=== PATIENT | male | born 1975 | race Caucasian/White ===

== ENCOUNTER 2021-09-08 18:55 | Emergency (ER) | payer SELFPAY ==
[2021-09-08 19:22] VITALS: BP 129/90; PULSE 70; RESP 18; TEMP 36.4; O2SAT 97
--- NOTE | 2021-09-08 21:01 | PC.NURSE ---
First call 2100, no answer. Will call again.
--- NOTE | 2021-09-08 21:05 | PC.NURSE ---
Pt did not answer for triage at 2050 and 2100.
== END 2021-09-08 19:22 | disposition left against medical advice (07) ==
DX: Z29.14 Encounter for prophylactic rabies immune globulin (principal)
CPT/HCPCS: 99199

== ENCOUNTER 2023-08-29 13:40 | Emergency (ER) | payer OTHER, SELFPAY ==
[2023-08-29 13:43] VITALS: BP 94/60; PULSE 112; RESP 16; TEMP 36.3; O2SAT 100
--- NOTE | 2023-08-29 14:10 | PC.NURSE ---
Pt with dressings to bilateral feet. Receiving IV antibiotics at [place]. PICC line intact, will not flush. Pt states had PICC line placed at [facility]
--- NOTE | 2023-08-29 14:44 | ED_ITS ---
HPI - General Adult General Chief complaint: Recheck/Abnormal Lab/Rx Stated complaint: PICC line not working Time Seen by Provider: 08/29/23 14:02 History of Present Illness HPI narrative: 48-year-old male present in the emergency department for evaluation of a PICC line that is nonfunctioning. Patient had his PICC line placed approximately 2 weeks ago at [place] in the line is no longer functional. Related Data Allergies Allergy/AdvReac Type Severity Reaction Status Date / Time No Known Allergies Allergy Verified 09/08/21 19:25 Review of Systems Review of Systems: All systems reviewed & are unremarkable except as noted in HPI and below Exam Narrative: APPEARANCE: Well appearing, no pain, no distress, well-nourished. HEAD: normocephalic, atraumatic. EYES: PERRLA/EOMI, conjunctivae clear. NOSE: Normal no drainage EARS:TMS clear with good light reflex. THROAT: Pharynx clear, no exudate. NECK: Supple. No adenopathy, no masses. RESPIRATORY: Airway patent, respirations nonlabored. Clear to auscultation bilaterally, no rales, rhonchi, wheezing. CARDIOVASCULAR: Regular rate and rhythm without murmurs rubs or gallops. ABDOMINAL: Soft, nontender, nondistended, normal bowel sounds MUSCULOSKELETAL: Dressing intact affected limb NEURO: Alert. Cranial nerves II through XII intact. Good gait. Good coordination SKIN: Warm, dry. Normal Color Course Vital Signs Vital signs: Vital Signs Temperature 97.3 F L 08/29/23 13:43 Pulse Rate 112 H 08/29/23 13:43 Respiratory Rate 16 08/29/23 13:43 Blood Pressure 94/60 L 08/29/23 13:43 Pulse Oximetry 100 08/29/23 13:43 Temperature 97.3 F L 08/29/23 13:43 Pulse Rate 112 H 08/29/23 13:43 Respiratory Rate 16 08/29/23 13:43 Blood Pressure 94/60 L 08/29/23 13:43 Pulse Oximetry 100 08/29/23 13:43 Medical Decision Making [facility] Narrative Medical decision making narrative: Patient had an 18 gauge peripheral line placed in the left arm that will be use for antibiotics night. Patient does have follow-up tomorrow at [place]. Vital Signs Vital Signs: Vital Signs Temperature 97.3 F L 08/29/23 13:43 Pulse Rate 112 H 08/29/23 13:43 Respiratory Rate 16 08/29/23 13:43 Blood Pressure 94/60 L 08/29/23 13:43 Pulse Oximetry 100 08/29/23 13:43 Temperature 97.3 F L 08/29/23 13:43 Pulse Rate 112 H 08/29/23 13:43 Respiratory Rate 16 08/29/23 13:43 Blood Pressure 94/60 L 08/29/23 13:43 Pulse Oximetry 100 08/29/23 13:43 Discharge Plan Discharge Clinical Impression: Need for intravenous access Patient Disposition: [place] Skilled Nursing/Asst Living Condition: Stable Instructions: Antibiotic Form Additional Instructions: Use the peripheral IV for your antibiotics for today. Have close follow-up with your physicians at [place] tomorrow as scheduled. Follow-up/Referrals: PHYSICIAN,CANVASSING MANAGER [Primary Care Provider] -
== END 2023-08-29 15:01 ==
PROVIDERS: Emergency Provider Emergency Medicine
DX: T82.594A Other mechanical complication of infusion catheter, initial encounter (principal)
CPT/HCPCS: 99282